=== PATIENT | male | born 1935 | race Caucasian/White ===

== ENCOUNTER → 2023-11-21 09:06 | Outpatient (REF) | payer MEDICARE, OTHER, SELFPAY | LOC: SDSPAT 09:06 | PROVIDERS: ATTENDING PHYSICIAN Surgery; FAMILY PHYSICIAN Family Medicine | DX: K40.90 Unilateral inguinal hernia, without obstruction or gangrene, not specified as recurrent (principal) | CPT/HCPCS: 36415; 93005 ==

== ENCOUNTER 2023-12-04 06:06 | Day surgery (SDC) | payer MEDICARE, OTHER, SELFPAY ==
[2023-11-21 09:23] VITALS: BMI 30.4
[2023-12-04] VITALS (10 sets, daily range): BP systolic 127–177; BP diastolic 65–89; BMI 30.4
[2023-12-04] MEDS: TYLENOL 1000 MG PO (06:32)
[2023-12-04] MEDS: NORMOSOL-R 1000 IV (06:42)
--- NOTE | 2023-12-04 09:48 | W.IMMPOSTOP ---
Addendum entered and electronically signed by Perez Bates MD 12/04/23 10:09:
Correction: Anesthesia: MAC local --> LMA due to pt coughing during the procedure.
Original Note:
Surgical Immed Post Op Note
-
Primary Surgeon: Jana
Assisting: Eliceo JIMÉNEZ
Pre-op Diagnosis: Left inguinal hernia
Post-op Diagnosis: Same
Procedure Performed: Open repair left inguinal hernia (Deangelo)
Anesthesia Type: GETA
Specimen / Cultures: None
Estimated Blood Loss: 20cc
Complications: None immediate
Operative Findings: Large pantaloon hernia with indirect component containing colon and blown out inguinal floor. 3' x 6' bard mesh trimmed to size.
--- NOTE | 2023-12-04 09:56 | OR.RPT ---
Addendum entered and electronically signed by Perez Bates MD 12/04/23 11:57:
The assistance of Eliceo JIMÉNEZ was required due to the complexity of the procedure. During the procedure she assisted with retraction, resection, and closure of the wound.
Original Note:
Operative Report
Operative Report
Primary Surgeon: Jana
Assisting: Eliceo JIMÉNEZ
Pre-op Diagnosis: Left inguinal hernia
Post-op Diagnosis: Same
Procedure Performed: Open repair left inguinal hernia (Deangelo)
Anesthesia Type: MAC local --> LMA
Specimen / Cultures: None
Estimated Blood Loss: 20cc
Complications: None immediate
Operative Findings: Large pantaloon hernia with indirect component containing colon and blown out inguinal floor. 3' x 6' bard mesh trimmed to size. Coughing during
Date of Surgery: 12/04/23
Indications: This 88M developed a symptomatic left inguinal hernia and open repair was elected. Coughing during the procedure led to conversion from MAC local to LMA.
PROCEDURE: After informed consent was obtained, the patient was brought to the operative suite and placed supine on the operating table. The patient was sedated, prepped and draped in the usual sterile manner and an adequate local anesthetic was
administered using lidocaine 1% with epinephrine.
An oblique incision was made two fingerbreadths above the inguinal ligament and parallel to it. The incision was carried down to the external oblique aponeurosis with electrocautery. The external oblique aponeurosis was exposed and incised parallel
to its fibers with a #15 blade. The external oblique aponeurosis was then divided with metzenbaum jeremy, elevating it off the deeper layers moving from lateral to medial toward the external ring and protecting the ilioinguinal nerve. The pubic
tubercle was identified and cord structures and hernia sac were bluntly elevated off the tubercle and isolated with a frank drain The sac was bluntly from cord structures. During the dissection the sac opened revealing colon and fat
inside the sac. The sac was repaired and reduced into the abdomen. The sac was dissected down to its base at the internal ring where preperitoneal fat was visible. The inguinal floor was blown out. It was reinforced with imbricating 2-0 vicryl
sutures with shallow bites. The bard mesh was trimmed to size and the curved side was placed medially over the tubercle and secured to the tubercle with 2-0 prolene suture. The lateral edge of the mesh was secured to the shelving edge of the
inguinal ligament with interrupted 2-0 prolene sutures. The medial edge was secured to the conjoint tendon in similar fashion. The tails were crossed over the cord structures and sutured to themselves with 2-0 prolene suture. The external oblique
aponeurosis was closed over the mesh with a running 2-0 Vicryl suture. Local anesthetic was infiltrated into the the external oblique aponeurosis. The wound was irrigated with sterile saline and hemostasis was assured. The skin was closed in layers
with interupted 2-0 vicryl deep dermal sutures and a running subcuticular 4-0 monocryl suture. Topical skin glue was applied.
All surgical counts were reported as correct.
The patient tolerated the procedure well and was taken to the PACU in stable condition.
== END 2023-12-04 11:47 | disposition home or self-care (01) ==
LOC: SDS 06:06
PROVIDERS: ATTENDING PHYSICIAN Surgery
DX: K40.90 Unilateral inguinal hernia, without obstruction or gangrene, not specified as recurrent (principal)
CPT/HCPCS: 49505; C1781

== ENCOUNTER → 2024-05-15 13:51 | Outpatient (REF) | payer MEDICARE, OTHER, SELFPAY | LOC: RAD 13:51 | PROVIDERS: ATTENDING PHYSICIAN Family Medicine | DX: M79.18 Myalgia, other site (principal) | CPT/HCPCS: 72170 ==

== ENCOUNTER → 2024-06-05 14:05 | Outpatient (REF) | payer MEDICARE, OTHER, SELFPAY | LOC: RAD 14:05 | PROVIDERS: ATTENDING PHYSICIAN Family Medicine | DX: Z13.89 Encounter for screening for other disorder (principal) | CPT/HCPCS: 70030 ==

== ENCOUNTER → 2024-06-17 10:11 | Outpatient (REF) | payer MEDICARE, OTHER, SELFPAY | LOC: PAVMRI 10:11 | PROVIDERS: ATTENDING PHYSICIAN Family Medicine | DX: M79.18 Myalgia, other site (principal) | CPT/HCPCS: 72195 ==

== ENCOUNTER 2024-07-08 06:18 | Day surgery (SDC) | payer MEDICARE, OTHER, SELFPAY ==
[2024-07-08 13:09] VITALS: BMI 31.3
[2024-07-08 13:10] VITALS: BP 166/82; BMI 31.3
[2024-07-08] MEDS: NORMOSOL-R/PLASMALYTE-A 1000 IV (13:15)
[2024-07-08] MEDS: TYLENOL 1000 MG PO (13:16)
[2024-07-08 15:39] VITALS: BP 140/74
[2024-07-08 15:45] VITALS: BP 135/63
[2024-07-08 16:00] VITALS: BP 141/70
[2024-07-08 16:15] VITALS: BP 135/60
--- NOTE | 2024-07-08 16:21 | OR.RPT ---
Operative Report
Operative Report
Primary Surgeon: Jana
Pre-op Diagnosis: Left buttock lipoma
Post-op Diagnosis: Left buttock old hematoma
Procedure Performed: Excision and drainage of old hematoma
Anesthesia Type: MAC local
Specimen / Cultures: Left buttock hematoma
Estimated Blood Loss: 10cc
Complications: None immediate
Operative Findings: Thin old bloody fluid and thick walled sac extending to ischium. Sac excised in toto.
Date of Surgery: 07/08/24
Indications: This 89M developed a symptomatic mass on his left buttock. Magnetic resonance imaging showed a suspected lipoma. Excision under MAC local was elected.
PROCEDURE: After informed consent was obtained, the patient was brought to the operative suite and placed prone on the operating table. The patient was sedated, prepped and draped in the usual sterile manner and an adequate local anesthetic was
administered using lidocaine 1% with epinephrine.
An incision was made over the mass with a #10 blade and carried down to the capsule with electrocautery. The capsule was dissected away from surrounding muscle fascia and fat with blunt dissection and electrocautery. The capsule was opened to reveal
thin hemorrhagic fluid. The sac was then excised in toto and passed off the table as specimen. At its deepest point it was attached to the ischium.
The wound was then irrigated with copious sterile saline, and hemostasis was obtained using Bovie electrocautery. Themuscle and fasia was reapproximated with 2-0 vicryl sutures. The skin was approximated with 3-0 Vicryl deep dermal interrupted
sutures and 4-0 monocryl suture in a subcuticular fashion. Topical skin glue was then applied. All surgical counts were reported as correct.
The patient tolerated the procedure well and was taken to the PACU in stable condition.
[2024-07-08 16:30] VITALS: BP 137/66
== END 2024-07-08 16:49 | disposition home or self-care (01) ==
LOC: SDS 06:18
PROVIDERS: ATTENDING PHYSICIAN Surgery
DX: D17.1 Benign lipomatous neoplasm of skin and subcutaneous tissue of trunk (principal); I25.10 Atherosclerotic heart disease of native coronary artery without angina pectoris; I10 Essential (primary) hypertension; I48.91 Unspecified atrial fibrillation; N40.0 Benign prostatic hyperplasia without lower urinary tract symptoms; I35.8 Other nonrheumatic aortic valve disorders; Z86.711 Personal history of pulmonary embolism; Z88.0 Allergy status to penicillin
CPT/HCPCS: 11400; 88304